=== PATIENT | male | born 2000 | race Caucasian/White ===

== ENCOUNTER 2023-04-16 16:56 | Emergency (ER) | payer BC, SELFPAY ==
[2023-04-16 17:03] VITALS: BP 167/106; PULSE 95; RESP 20; TEMP 36.6; O2SAT 95; BMI 29.0
--- NOTE | 2023-04-16 17:13 | CT_ITS ---
The [address] [address] Patient Name: SUZAN BO MRN: [id number] date: 2000 Sex: M Assigned Patient Location: ER Current Patient Location: ER Accession/Order Number: [id number] Exam Date: 04/16/2023 17:20 Report Date: 04/16/2023 18:43 At the request of: JASON CAPUTO Procedure: CT abdomen pelvis w con EXAM: CT abdomen pelvis w con HISTORY: LLQ pain nausea/vomiting COMPARISON: None. TECHNIQUE: Axial CT imaging was performed through the abdomen and pelvis with intravenous contrast. Multiplanar reformats were performed. Dose reduction techniques were achieved by using automated exposure control and/or adjustment of mA and/or kV according to patient size and/or use of iterative reconstruction technique. FINDINGS: Lung bases: Lung bases are clear. No pleural effusion. GI upper: Unremarkable. Liver: Normal size and contour. Gallbladder: No significant abnormality. No cholelithiasis. Biliary system: No intra or extrahepatic biliary ductal dilatation. Pancreas: Unremarkable. Spleen: Normal size. Adrenal glands: Normal adrenal glands. Kidneys/ureters: Normal contours. No hydronephrosis or visible mass. No nephrolithiasis. Vessels: No aneurysm. Retroperitoneum: No lymphadenopathy. Small bowel: No wall thickening or dilatation. Colon: There is fat stranding adjacent to the distal descending colon with a central 1.4 cm ovoid focus of fat density. Appendix: Appendix is identified with normal appearance. Peritoneal cavity: No free fluid or pneumoperitoneum. Lower : Unremarkable. Bones: No acute bony abnormality. Soft tissues: No acute finding. Additional findings: None. IMPRESSION: Findings at the distal descending colon consistent with epiploic appendagitis. Electronically authenticated by: Haley HUA Date: 04/16/2023 18:43
--- NOTE | 2023-04-16 17:15 | ED_ITS ---
HPI - Abdominal Pain General Chief Complaint: Abdominal Pain Stated Complaint: LT FLANK PAIN Time Seen by Provider: 04/16/23 17:02 Source: patient Mode of arrival: walk-in History of Present Illness HPI narrative: 23-year-old male presents for left lower quadrant pain. He's had it continuously for a week. No constipation or diarrhea. No pain on the right side. No dysuria or hematuria or back pain. He's never had pain like this before. His mother is worried he might have diverticulitis. The patient admits that his diet consists primarily of fast food. Related Data Allergies Allergy/AdvReac Type Severity Reaction Status Date / Time No Known Drug Allergies Allergy Verified 04/16/23 17:06 Review of Systems ROS Narrative A ten point review of systems is negative except as noted above. Exam Narrative Exam Narrative: Nurses note and vital signs reviewed and patient is not hypoxic. General: The patient appears well and in no apparent distress. Patient is resting comfortably on cart. Skin: Warm, dry, no pallor noted. There is no rash noted. Head: Normocephalic, atraumatic Eye: Normal conjunctiva, no drainage Ears, Nose, Mouth, and Throat: oral mucosa is moist. Nares patent. Cardiovascular: Regular Rate and Rhythm Respiratory: Patient is in no distress, no accessory muscle use, lungs are clear to auscultation, no wheezing, rales or rhonchi Back: non-tender GI: Normal bowel sounds, tenderness to palpation only in the left lower quadrant. Musculoskeletal: The patient has no evidence of calf tenderness, no pitting edema, symmetrical pulses noted bilaterally Neurological: A&O, normal speech Psychiatric: Cooperative Constitutional Vital Signs - 24 hr 04/16/23 17:03 Temperature 98 F Pulse Rate [Monitor] 95 H Respiratory Rate 20 Blood Pressure [Left Arm] 167/106 H Pulse Oximetry 95 Oxygen Delivery Method Room Air Course Vital Signs Vital signs: Vital Signs Temperature 98 F 04/16/23 17:03 Pulse Rate 95 H 04/16/23 17:03 Respiratory Rate 20 04/16/23 17:03 Blood Pressure 167/106 H 04/16/23 17:03 Pulse Oximetry 95 04/16/23 17:03 Oxygen Delivery Method Room Air 04/16/23 17:03 Temperature 98 F 04/16/23 17:03 Pulse Rate 95 H 04/16/23 17:03 Respiratory Rate 20 04/16/23 17:03 Blood Pressure 167/106 H 04/16/23 17:03 Pulse Oximetry 95 04/16/23 17:03 Oxygen Delivery Method Room Air 04/16/23 17:03 MDM - Abdominal Pain MDM Narrative Medical decision making narrative: blood work is negative. CAT scan shows epiploic appendicitis. Findings are discussed with the patient and his mother. Differential Diagnosis Differential diagnosis: Likely abdominal pain, constipation, diverticulitis and gastroenteritis Lab Data Attestation: I reviewed the patient's lab results. Labs: Lab Results 04/16/23 04/16/23 Range/Units 17:24 17:49 WBC 5.3 (4.0-11.0) 10^3/uL RBC 5.11 (4.70-6.10) 10^6/uL Hgb 14.8 (14.0-18.0) g/dL Hct 42.1 (42.0-54.0) % MCV 82.4 (80.0-94.0) fL MCH 29.0 (25.9-34.0) pg MCHC 35.2 (29.9-35.2) g/dL RDW 11.9 (11.0-15.0) % Plt Count 174 (150-450) 10^3/uL MPV 9.5 (9.5-13.5) fL Neut % (Auto) 57.6 (43.0-75.0) % Lymph % (Auto) 32.7 (20.5-60.0) % [place] % (Auto) 7.4 (1.7-12.0) % Eos % (Auto) 1.3 (0.9-7.0) % Baso % (Auto) 0.4 (0.2-2.0) % Neut # (Auto) 3.1 (1.4-6.5) 10^3/uL Lymph # (Auto) 1.7 (1.2-3.8) 10^3/uL [place] # (Auto) 0.4 (0.3-0.8) 10^3/uL Eos # (Auto) 0.1 (0.0-0.7) 10^3/uL Baso # (Auto) 0.0 (0.0-0.1) 10^3/uL Abs Immat Gran (auto) 0.03 (0.00-0.03) 10^3/uL Imm/Tot Granulo (auto) 0.6 H (0.0-0.5) % Sodium 138 (136-145) mmol/L Potassium 4.1 (3.5-5.1) mmol/L Chloride 104 (98-107) mmol/L Carbon Dioxide 25.3 (21.0-32.0) mmol/L Anion Gap 12.8 BUN 15.0 (7.0-18.0) mg/dL Creatinine 1.05 (0.70-1.30) mg/dL Est GFR ( Amer) >60 (>=60) Est GFR (Non-Af Amer) >60 (>=60) BUN/Creatinine Ratio 14.3 Glucose 93 (74-106) mg/dL Calcium 9.0 (8.5-10.1) mg/dL Urine Color Yellow (YELLOW) Urine Clarity Clear (CLEAR) Urine pH 6.5 (5.0-9.0) Ur Specific Serafina 1.020 (1.005-1.025) Urine Protein Negative (NEG/TRACE) mg/dL Urine Glucose (UA) Negative (NEGATIVE) mg/dL Urine Ketones Negative (NEGATIVE) mg/dL Urine Occult Blood Negative (NEGATIVE) Urine Nitrite Negative (NEGATIVE) Urine Bilirubin Negative (NEGATIVE) Urine Urobilinogen 0.2 (0.2-1.0) EU/dL Ur Leukocyte Esterase Negative (NEGATIVE) Discharge Plan Discharge Chief Complaint: Abdominal Pain Clinical Impression: Epiploic appendagitis Patient Disposition: Home, Self-Care Time of Disposition Decision: 18:50 Condition: Good Mode of Transportation: Private Vehicle Instructions: Epiploic Appendagitis (ED) Stand Alone Forms: Portal Instructions Referrals: [facility] [Primary Care Provider] - 1 week
[2023-04-16 17:34] LABS: Basophils Percent Auto 0.4 % (0.2-2.0); Eosinophils Absolute Auto 0.1 10^3/uL (0.0-0.7); Eosinophils Percent Auto 1.3 % (0.9-7.0); Hematocrit 42.1 % (42.0-54.0); Hemoglobin 14.8 g/dL (14.0-18.0); Immature Granulocytes Abs Auto 0.03 10^3/uL (0.00-0.03); Immature Granulocytes Pct Auto 0.6 % (0.0-0.5); Lymphocytes Absolute Auto 1.7 10^3/uL (1.2-3.8); Lymphocytes Percent Auto 32.7 % (20.5-60.0); Mean Corpuscular HGB Conc 35.2 g/dL (29.9-35.2); Mean Corpuscular Volume 82.4 fL (80.0-94.0); Mean Platelet Volume 9.5 fL (9.5-13.5); Monocytes Absolute Auto 0.4 10^3/uL (0.3-0.8); Monocytes Percent Auto 7.4 % (1.7-12.0); Neutrophils Absolute Auto 3.1 10^3/uL (1.4-6.5); Neutrophils Percent Auto 57.6 % (43.0-75.0); Platelet Count 174 10^3/uL (150-450); Red Blood Count 5.11 10^6/uL (4.70-6.10); Red Cell Distribution Width 11.9 % (11.0-15.0); White Blood Count 5.3 10^3/uL (4.0-11.0)
[2023-04-16 17:39] LABS: Anion Gap 12.8; BUN Creatinine Ratio 14.3; Carbon Dioxide 25.3 mmol/L (21.0-32.0); Chloride 104 mmol/L (98-107); Estimated GFR (African America >60 (>=60); Estimated GFR (Non-African Ame >60 (>=60); Glucose 93 mg/dL (74-106); Potassium 4.1 mmol/L (3.5-5.1); Sodium 138 mmol/L (136-145)
[2023-04-16] MEDS: 0.9 % SODIUM CHLORIDE 1,000 ML 100 ML IV (18:03)
[2023-04-16 18:04] LABS: Bilirubin Urine NEGATIVE (NEGATIVE); Blood Urine NEGATIVE (NEGATIVE); Clarity Urine CLEAR (CLEAR); Color Urine YELLOW (YELLOW); Glucose Urine UA NEGATIVE (NEGATIVE); Ketones Urine NEGATIVE (NEGATIVE); Leukocyte Esterase Urine NEGATIVE (NEGATIVE); Nitrite Urine NEGATIVE (NEGATIVE); Protein Urine NEGATIVE (NEG/TRACE); Urobilinogen Urine 0.2 EU/dL (0.2-1.0); pH Urine 6.5 (5.0-9.0)
[2023-04-16 18:05] LABS: Urine Microscopic Indicated NO
== END 2023-04-16 19:14 | disposition home or self-care (01) ==
PROVIDERS: Emergency Provider Emergency Medicine
DX: K63.89 Other specified diseases of intestine (principal)
CPT/HCPCS: 36415; 74177; 80048; 81003; 85025; 99284; Q9967